=== PATIENT | male | born 1970 | race Caucasian/White ===

== ENCOUNTER 2016-11-12 21:19 | Emergency (ER) | payer SELFPAY ==
[2016-11-13] MEDS ORDERED: DIPH/PERTUSS(ACELL)/TETANUS VAC/PF 0.5 ML SYR (>=10YO) IM ONE (00:12)
[2016-11-13] MEDS ORDERED: DOXYCYCLINE HYCLATE 100 MG TABLET PO ONE (00:14)
--- NOTE | 2016-11-13 00:16 | ER Document Report ---
ED General - General Chief Complaint: Dog Bite Stated Complaint: DOG BITE Time Seen by Provider: 11/12/16 22:56 Notes: Patient is a 46-year-old male who presents after being bitten by his dog just prior to arrival. Patient sustained lacerations to the first second and third digit of the left hand. Notes a constant, severe, throbbing pain to the affected areas. Touching area worsens the pain. Nothing improves the pain. No history of similar injuries in the past. His dogs are up-to-date on immunizations. Patient is uncertain when his last tetanus immunization was administered. Denies any additional injuries. Denies any weakness or numbness. TRAVEL OUTSIDE OF THE [place] IN LAST 30 DAYS: No - Related Data Allergies/Adverse Reactions: aspirin [Aspirin] Allergy (Verified 09/16/15 12:31) Hives Penicillins Allergy (Verified 09/16/15 12:31) Hives Past Medical History - General Information source: Patient - Social History Smoking Status: Current Every Day Smoker Frequency of alcohol use: None Drug Abuse: None Lives with: Family Family History: Reviewed & Not Pertinent Patient has suicidal ideation: No Patient has homicidal ideation: No - Past Medical History Cardiac Medical History: Denies: Hx Coronary Artery Disease, Hx Hypertension Pulmonary Medical History: Reports: Hx Asthma Endocrine Medical History: Denies: Hx Diabetes Mellitus Type 1, Hx Diabetes Mellitus Type 2 Renal/ Medical History: Denies: Hx Peritoneal Dialysis Past Surgical History: Reports: Hx Appendectomy, Hx Orthopedic Surgery - right hand - Immunizations Hx Diphtheria, Pertussis, Tetanus Vaccination: Yes Review of Systems - Review of Systems Notes: Constitutional: Negative for fever. Eyes: Negative for visual changes. ENT: Negative for facial injury Cardiovascular: Negative for chest injury. Respiratory: Negative for shortness of breath. Gastrointestinal: Negative for abdominal injury. Genitourinary: Negative for genital injury Musculoskeletal: Negative for back injury. Skin: Positive for laceration/abrasions. Neurological: Negative for head injury. Physical Exam - Vital signs Vitals: Temp Pulse Resp BP Pulse Ox 97.8 F 67 18 124/75 97 11/12/16 21:47 11/12/16 21:47 11/12/16 21:47 11/12/16 21:47 11/12/16 21:47 Interpretation: Normal Notes: PHYSICAL EXAMINATION: GENERAL: Well-appearing, well-nourished and in no acute distress. HEAD: Atraumatic, normocephalic. EYES: Pupils equal round and reactive to light, extraocular movements intact, sclera anicteric, conjunctiva are normal. ENT: nares patent, oropharynx clear without exudates. Moist mucous membranes. NECK: Normal range of motion, supple without lymphadenopathy LUNGS: Breath sounds clear to auscultation bilaterally and equal. No wheezes rales or rhonchi. HEART: Regular rate and rhythm without murmurs ABDOMEN: Soft, nontender, normoactive bowel sounds. No guarding, no rebound. No masses appreciated. EXTREMITIES: AIN, PIN, IO intact. RMU sensory distribution intact. NEUROLOGICAL: No focal neurological deficits. Moves all extremities spontaneously and on command. PSYCH: Normal mood, normal affect. SKIN: Warm, Dry, normal turgor, and has a superficial laceration at the volar tip of the first, second and third digits Course - Re-evaluation Re-evalutation: 11/13/16 04:11 Patient presents with multiple dog bite to the left hand. Tetanus will be updated he has been started on doxycycline due to his allergy to penicillins. Wounds were irrigated extensively. At this time will discharge with return precautions and follow-up recommendations. Verbal discharge instructions given a the bedside and opportunity for questions given. Medication warnings reviewed. Patient is in agreement with this plan and has verbalized understanding of return precautions and the need for primary care follow-up in the next 24-72 hours. 11/13/16 04:21 - Vital Signs Vital signs: Temp Pulse Resp BP Pulse Ox 97.8 F 70 20 138/86 H 95 11/12/16 21:47 11/13/16 00:38 11/13/16 00:38 11/13/16 00:38 11/13/16 00:38 Discharge - Discharge Clinical Impression: Dog bite of left hand Qualifiers: Encounter type: initial encounter Qualified Code(s): S61.452A - Open bite of left hand, initial encounter Condition: Good Disposition: HOME, SELF-CARE Additional Instructions: Please monitor very closely for any signs of infection from your dog bite including spreading redness from the area, pus from the wound, or worsening pain. Clean the area twice daily with soap and water and then apply topical antibiotic ointment. Please take all the antibiotics that you were prescribed until they are gone. Follow-up with your primary care physician as needed. Prescriptions: Doxycycline Hyclate 100 mg PO BID #10 capsule Forms: Return to Work
[2016-11-13] MEDS ORDERED: IBUPROFEN 600 MG TABLET PO ONE (00:24)
[2016-11-13 00:59] VITALS: BP 138/86
== END 2016-11-13 00:40 | disposition home or self-care (01) ==
LOC: ER 21:19
DX: S61.452A Open bite of left hand, initial encounter (principal); W54.0XXA Bitten by dog, initial encounter; Z23 Encounter for immunization; Z88.0 Allergy status to penicillin; Z88.6 Allergy status to analgesic agent
CPT/HCPCS: 90471; 90715; 99283

== ENCOUNTER 2017-03-03 20:26 | Observation (INO) | payer SELFPAY ==
[2017-03-03] MEDS ORDERED: NITROGLYCERIN 2% OINTMENT 1 GM PACKET TP ONE (20:35)
--- NOTE | 2017-03-03 20:41 | ER Document Report ---
ED Cardiac - General Chief Complaint: Chest Pain > 30 Stated Complaint: CHEST PAIN Time Seen by Provider: 03/03/17 20:30 Mode of Arrival: Medic Information source: Patient, Emergency Med Personnel TRAVEL OUTSIDE OF THE [place] 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 Has not had similar symptoms in the past. Smokes 1/2 ppd. Plus diaphoresis - Related Data Allergies/Adverse Reactions: aspirin [Aspirin] Allergy (Verified 09/16/15 12:31) Hives Penicillins Allergy (Verified 09/16/15 12:31) Hives Past Medical History - General Information source: Patient, Emergency Med Personnel - Social History Smoking Status: Current Every Day Smoker Cigarette use (# per day): Yes Chew tobacco use (# tins/day): No Smoking Education Provided: Yes Family History: Reviewed & Not Pertinent - Past Medical History Cardiac Medical History: Denies: Hx Coronary Artery Disease, Hx Hypertension Pulmonary Medical History: Reports: Hx Asthma Endocrine Medical History: Denies: Hx Diabetes Mellitus Type 1, Hx Diabetes Mellitus Type 2 Renal/ Medical History: Denies: Hx Peritoneal Dialysis Past Surgical History: Reports: Hx Appendectomy, Hx Orthopedic Surgery - right hand - Immunizations Hx Diphtheria, Pertussis, Tetanus Vaccination: Yes Review of Systems - Review of Systems Constitutional: No symptoms reported Cardiovascular: See HPI, Chest pain Respiratory: No symptoms reported Gastrointestinal: No symptoms reported Musculoskeletal: No symptoms reported Neurological/Psychological: No symptoms reported -: Yes All other systems reviewed and negative Physical Exam - Vital signs Vitals: Resp Pulse Ox 18 96 03/03/17 20:39 03/03/17 20:39 - General General appearance: Appears well In distress: Mild - HEENT Pharynx: Normal Neck: Normal - Respiratory Respiratory status: No respiratory distress Chest status: Tender - There is min-mod TTP of the L anterior CW diffusely Breath sounds: Normal - Cardiovascular Rhythm: Regular Heart sounds: Normal auscultation - Abdominal Inspection: Normal Tenderness: Nontender Course - Re-evaluation Re-evalutation: 03/03/17 21:58 Pt. is feeling much better on re-evaluation. I have had a long talk with this pt. and have urged him to be admitted to the hospital as I am not sure as to the etiology of his CP. He states his young son is at home with the career technical supervisor and he needs to get home to him. He says he will return in the morning for reassessment. I have urged him to return prior to that if his CP returns. He will sign out OCTAVIOA michael. 03/03/17 22:20 Pt has agreed to be admitted. Will call hospitalist - Vital Signs Vital signs: Temp Pulse Resp BP Pulse Ox 20 150/79 H 98 03/03/17 21:01 03/03/17 21:01 03/03/17 22:16 - Laboratory Result Diagrams: 03/03/17 20:48 03/03/17 20:48 Laboratory results interpreted by me: 03/03/17 03/03/17 20:48 20:48 Lymphocytes % 48.5 H Sodium 136.5 L Direct Bilirubin 0.7 H Creatine Kinase 352 H - Diagnostic Test Radiology reviewed: Reports reviewed - nad - EKG Interpretation by Me EKG shows normal: Sinus rhythm Rate: Normal Rhythm: NSR - nsr without acute change - Consults letty Michael Consulted provider: will come to ER Discharge - Discharge Clinical Impression: Chest pain Qualifiers: Chest pain type: unspecified Qualified Code(s): R07.9 - Chest pain, unspecified Condition: Stable Disposition: AGAINST MEDICAL ADVICE Additional Instructions: rest, start aspirin every day, return if worse Referrals: FARAZ CHANDLER MD [ACTIVE STAFF] - Follow up as needed
[2017-03-03 21:01] LABS: ABSOLUTE BASOPHILS # (AUTO) 0.1 10^3/uL (0.0-0.2); ABSOLUTE EOSINOPHILS # (AUTO) 0.2 10^3/uL (0.0-0.6); ABSOLUTE MONOCYTES (AUTO) 0.5 10^3/uL (0.1-1.4); ABSOLUTE NEUT (AUTO) 3.4 10^3/uL (1.7-8.2); BASOPHILS % (AUTO) 0.8 % (0-2); EOSINOPHILS % (AUTO) 2.8 % (0-6); HEMATOCRIT 42.8 % (37.9-51.0); HEMOGLOBIN 15.2 g/dL (13.5-17.0); HGB HCT DIFFERENCE 2.8; LYMPHOCYTES % (AUTO) 48.5 % (13-45); MEAN CORPUSCULAR HEMOGLOBIN 33.4 pg (27.0-33.4); MEAN CORPUSCULAR HGB CONC 35.5 g/dL (32.0-36.0); MEAN CORPUSCULAR VOLUME 94 fl (80-97); MONOCYTES % (AUTO) 5.8 % (3-13); RED BLOOD COUNT 4.55 10^6/uL (4.35-5.55); RED CELL DISTRIBUTION WIDTH 13.5 % (11.5-14.0); SEGMENTED NEUTROPHILS % (AUTO) 42.1 % (42-78); WHITE BLOOD COUNT 8.2 10^3/uL (4.0-10.5)
[2017-03-03 21:25] LABS: ALANINE AMINOTRANSFERASE 29 U/L (21-72); ALBUMIN 4.2 g/dL (3.5-5.0); ALKALINE PHOSPHATASE 93 U/L (38-126); ANION GAP 8 (5-19); ASPARTATE AMINO TRANSFERASE 41 U/L (17-59); BILIRUBIN,DIRECT 0.7 mg/dL (0.0-0.4); BILIRUBIN,TOTAL 0.8 mg/dL (0.2-1.3); BLOOD UREA NITROGEN 19 mg/dL (7-20); CALCIUM 9.3 mg/dL (8.4-10.2); CARBON DIOXIDE 25 mmol/L (22-30); CHLORIDE 104 mmol/L (98-107); CREATINE KINASE 352 U/L (55-170); CREATININE RESULT 0.93 mg/dL (0.52-1.25); GLUCOSE 99 mg/dL (75-110); POTASSIUM 4.8 mmol/L (3.6-5.0); SODIUM 136.5 mmol/L (137-145); TOTAL PROTEIN 7.2 g/dL (6.3-8.2)
--- NOTE | 2017-03-03 21:36 | RADIOLOGY REPORT (SQ) ---
EXAM DESCRIPTION: CHEST PA/LAT COMPLETED DATE/TIME: 03/03/2017 8:58 pm REASON FOR STUDY: CP COMPARISON: None. EXAM PARAMETERS: NUMBER OF VIEWS: two views TECHNIQUE: Digital Frontal and Lateral radiographic views of the chest acquired. RADIATION DOSE: NA LIMITATIONS: none FINDINGS: LUNGS AND PLEURA: No opacities, masses or pneumothorax. No pleural effusion. MEDIASTINUM AND HILAR STRUCTURES: No masses or contour abnormalities. HEART AND VASCULAR STRUCTURES: Heart normal size. No evidence for failure. BONES: No acute findings. HARDWARE: None in the chest. OTHER: No other significant finding. IMPRESSION: NO SIGNIFICANT RADIOGRAPHIC FINDING IN THE CHEST. TECHNICAL DOCUMENTATION: JOB ID: [id number] [facility]- All Rights Reserved
[2017-03-03 21:37] LABS: CREATINE KINASE MB 2.73 ng/mL (<4.55)
[2017-03-03 21:38] LABS: TROPONIN I < 0.012 ng/mL
[2017-03-03] MEDS ORDERED: PROMETHAZINE HCL 25 MG TABLET PO PRN (22:22)
[2017-03-03] MEDS ORDERED: ACETAMINOPHEN 325 MG TABLET PO PRN (22:22)
[2017-03-03 22:38] LABS: APPEARANCE,URINE SLIGHTLY-CLOUDY; BILIRUBIN,URINE NEGATIVE (NEGATIVE); GLUCOSE, URINE NEGATIVE (NEGATIVE); KETONES,URINE NEGATIVE (NEGATIVE); LEUKOCYTE ESTERASE,URINE NEGATIVE (NEGATIVE); NITRITE,URINE NEGATIVE (NEGATIVE); PROTEIN,URINE NEGATIVE (NEGATIVE); URINE SPECIFIC GRAVITY 1.025; UROBILINOGEN,URINE NEGATIVE mg/dL (<2.0)
[2017-03-03 23:55] LABS: URINE BARBITURATES SCREEN NEGATIVE; URINE METHADONE SCREEN NEGATIVE; URINE OPIATES LOW NEGATIVE; URINE PHENCYCLIDINE SCREEN NEGATIVE
[2017-03-04 04:30] LABS: CHOLESTEROL 180.91 mg/dL (0-200); Direct HDL 35 mg/dL (>40); TRIGLYCERIDES 267 mg/dL (<150)
[2017-03-04 04:41] LABS: DIRECT LDL 119 mg/dL (<100)
[2017-03-04 04:47] LABS: VLDL CHOLESTEROL 53.4 mg/dL (10-31)
[2017-03-04] MEDS ORDERED: ALBUTEROL SULFATE HFA (90 MCG/PUFF) 8 GM MDI (1 MDI/ER DISP) IH PRN (07:50)
[2017-03-04] MEDS ORDERED: MAG HYDROX/AL HYDROX/SIMETH SUSP 30 ML UDCUP PO PRN (07:51)
[2017-03-04] MEDS ORDERED: NICOTINE 14 MG/24 HR PATCH.TD24 TD PRN (08:01)
[2017-03-04] MEDS ORDERED: ALBUTEROL SULFATE HFA (90 MCG/PUFF) 200 PUFF/8.5 GM MDI IH PRN (08:05)
--- NOTE | 2017-03-04 08:10 | PDOC H&P ---
History of Present Illness Admission Date/PCP: 03/03/17 22:34 No PCP Patient complains of: chest pain History of Present Illness: JENNIE PEREZ is a 46 year old male with medical history remarkable essentially only for asthma, which rarely bothers him. Presents to the emergency room for evaluation of above complaint. Patient has been discussed with emergency room physician who evaluated the patient. 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 While at work, he noted the onset of what he described as stabbing chest pain, originating lower anterior left costal margin. No prior such episodes. No radiation of the pain. Nausea and 2 episodes of vomiting, along with mild shortness of breath and mild diaphoresis. Patient actually attempted to walk from the [facility] to the hospital. En route, the pain became much more pronounced and patient stopped and called an ambulance, with EMS transporting him to the hospital. Was given 1 sublingual nitroglycerin en route which partially relieved his pain with complete relief after an inch of Nitropaste was applied. Pain has not recurred. Patient has an aspirin allergy. No underlying cardiac disease in either himself or his family. No problems with hypertension, previous AK or congestive heart failure atrial fibrillation or atrial flutter. No history of pulmonary embolus or DVT. No recent long trip with prolonged inactivity, or unusual lower extremity swelling or tenderness. No prior cardiac workup. Currently resting quietly, chest pain-free. Dictation via voice recognition software. Laboratory results are listed in [employer] and are reviewed. X-ray summary results are listed below, with full report(s) reviewed. . EKG reviewed. Social history/personal habits: from his . One son. Employment as noted above. Half pack of cigarettes per day. Denies alcohol or illicit drug use, but drug screen is positive for marijuana. Allergies/adverse reactions are listed in [employer] and are reviewed. Home medications consist only of as needed Pro Air inhaler. Rarely uses this. REVIEW OF SYSTEMS: Constitutional: No fever or chills. Eyes: No vision complaints. ENT: No swallowing problems or complaints. Denies hearing loss. Pulmonary: See history and present illness. Cardiovascular: See history and present illness. Gastrointestinal: See history and present illness. Skin: No current complaints, including rashes. Hematologic: Denies easy bruising. Neurologic: No current complaints, including numbness or tingling. Musculoskeletal: No current or chronic joint complaints, such as arthritis. Psychiatric: Denies anxiety or depression. Endocrine: No current complaints, including polyuria. Genitourinary: No current complaints, including dysuria. PHYSICAL EXAMINATION: 5 feet 6 inches tall. 86.2 kg. BMI 30.7 kg/m. Temperature 98.4. Pulse 60 and regular. Blood pressure 06/22/1956. Respirations are 14 and unlabored. 96 % saturation on room air. Well-nourished well-developed male initially asleep. Awakens easily. Pleasant alert and cooperative. No obvious distress other than perhaps mildly anxious. Skin is warm and dry. No grossly obvious evidence of rash in areas of skin examined. No subcutaneous nodules palpated. ENT: Hearing grossly normal to normal conversation. Tongue midline on protrusion pink and slightly tacky. Eyes: No scleral icterus. Pupils equal and reactive to light at 4 mm. [place] conjunctivae. Neck is supple and nontender to gentle active range of motion and palpation. Midline trachea. No palpable thyroid nodule mass enlargement or tenderness. Lymphatic: No palpable cervical or clavicular nodes. Neck and lymphatic exams limited by patient body habitus. Psychiatric: Reasonable insight into acute and chronic medical issues. Oriented to time location and why here. Lungs: Auscultation reveals clear and equal breath sounds bilaterally. No use of accessory respiratory muscles. Cardiovascular: Heart regular rate and rhythm, without gallop murmur or rub. No carotid or abdominal aortic bruits. No ankle or pedal edema. Palpable dorsalis pedis pulses. Abdomen:soft slightly distended nontender with positive bowel sounds. Unable to adequately evaluate abdomen for masses or organomegaly due to distention. Compression of his upper epigastrium slightly reproduces his previously noted chest discomfort; sternal compression easily reproduces this discomfort. Extremities: Feet are warm and dry. No calf tenderness to compression. No grossly obvious visual evidence of calf swelling. Gentle manipulation of lower extremities fails to reveal any obvious evidence of injury or instability to knees hips or ankles. Neurologic: Moves upper extremities grossly normally. Patellar reflexes absent. Absent Babinski. Light touch is intact at feet. Dorsiflexion and plantarflexion of feet 5 / 5 and symmetric. Past Medical History Cardiac Medical History: Denies: Atrial Fibrillation, Congestive Heart Failure, Coronary Artery Disease, DVT, Myocardial Infarction, Hyperlipidema, Hypertension, Pulmonary Embolism Pulmonary Medical History: Reports: Asthma Denies: Chronic Obstructive Pulmonary Disease (COPD), Sleep Apnea EENT Medical History: Denies: Eyes, Ears, Throat Neurological Medical History: Denies: Hemorrhagic CVA, Ischemic CVA, Seizures Endocrine Medical History: Denies: Diabetes Mellitus Type 1, Diabetes Mellitus Type 2, Hyperthyroidism, Hypothyroidism Renal/ Medical History: Reports: None GI Medical History: Denies: Cirrhosis, Gastroesophageal Reflux Disease, Hepatitis, Peptic Ulcer Disease Musculoskeltal Medical History: Denies: Arthritis Skin Medical History: Reports: None Psychiatric Medical History: Reports: Substance Abuse, Tobacco Dependency, Other - Marijuana use Denies: Alcohol Dependency, Depression, General Anxiety Disorder Infectious Medical History: Denies: Hepatitis B, Hepatitis C Past Surgical History Past Surgical History: Reports: Appendectomy, Orthopedic Surgery - right hand Social History Information Source: Patient, Emergency Med Personnel, [facility] Records Smoking Status: Current Every Day Smoker Frequency of Alcohol Use: None Hx Recreational Drug Use: Yes Drugs: Marijuana - Advance Directive Resuscitation Status: Full Code Surrogate healthcare decision maker:: Mother Family History Family History: Reviewed & Not Pertinent Parental Family History Reviewed: Yes - Mother alive; seizure disorder. Never knew his father well. Children Family History Reviewed: Yes - Son with bipolar disorder. Sibling(s) Family History Reviewed.: Yes - Uncertain health status. Medication/Allergy Home Medications: Atorvastatin Calcium [Lipitor 40 mg Tablet] 40 mg PO QHS #30 tablet 03/05/17 Ibuprofen [Motrin 600 mg Tablet] 600 mg PO MEALS tablet 03/05/17 Allergies/Adverse Reactions: aspirin [Aspirin] Allergy (Verified 09/16/15 12:31) Hives Penicillins Allergy (Verified 09/16/15 12:31) Hives Seafood Allergy (Uncoded 03/04/17 08:14) throat swelling Physical Exam Vital Signs: Temp Pulse Resp BP Pulse Ox 98.4 F 60 16 124/59 L 98 03/04/17 01:00 03/04/17 02:00 03/04/17 01:00 03/04/17 01:00 03/04/17 01:00 Intake & Output 03/03/17 03/04/17 03/05/17 00:59 00:59 00:59 Intake Total 390 Balance 390 Weight 86.183 kg Results Laboratory Results: 03/04/17 03:45 Triglycerides 267 H Cholesterol 180.91 LDL Cholesterol Direct 119 H VLDL Cholesterol 53.4 H HDL Cholesterol 35 L 03/04/17 03:45 Troponin I < 0.012 Impressions: Chest X-Ray 03/03/17 20:34 IMPRESSION: NO SIGNIFICANT RADIOGRAPHIC FINDING IN THE CHEST. Assessment & Plan - Diagnosis (1) Precordial chest pain Is this a current diagnosis for this admission?: Yes Plan: Suspect this is musculoskeletal in nature, given its precordial reproduction, but given patient's risk factor of tobacco use, along with response to nitroglycerin, Patient will be placed in observation bed under chest pain protocol. Patient understands to notify staff should chest pain recur. Serial troponin . Repeat EKG. lipid panel. I have strongly encouraged patient to be careful getting out of bed, to avoid a fall with injury. Knee high SCDs for DVT prophylaxis. Impression and plans were discussed with patient, who concurs . Time spent in evaluation and management of patient: 58 minutes. (2) Tobacco dependency Is this a current diagnosis for this admission?: Yes Plan: As needed nicotine patch. (3) DVT prophylaxis Is this a current diagnosis for this admission?: Yes (4) Asthma Qualifiers: Asthma severity: mild Asthma persistence: unspecified Asthma complication type: uncomplicated Qualified Code(s): J45.909 - Unspecified asthma, uncomplicated Is this a current diagnosis for this admission?: Yes Plan: As needed pro-air inhaler. - Time Time Spent: 50 to 70 Minutes Medications reviewed and adjusted accordingly: Yes Anticipated discharge: Home Within: within 24 hours
[2017-03-04] MEDS ORDERED: CLOPIDOGREL BISULFATE 75 MG TABLET PO SCH (10:00)
[2017-03-04] MEDS: DOCUSATE SODIUM 100 MG CAPSULE PO SCH ×2 (10:26→18:47)
--- NOTE | 2017-03-04 11:13 | EKG REPORT ---
SEVERITY:- ABNORMAL ECG - SINUS RHYTHM ST ELEVATION SUGGESTS PERICARDITIS : Confirmed by: Lucila Banks MD 04-Mar-2017 11:12:48
--- NOTE | 2017-03-04 11:13 | EKG REPORT ---
SEVERITY:- NORMAL ECG - SINUS RHYTHM : Confirmed by: Lucila Banks MD 04-Mar-2017 11:12:53
[2017-03-04] MEDS ORDERED: DEXTROSE 50%-WATER 25 GM/50 ML DISP.SYRIN IV PRN ×2 (15:34)
[2017-03-04] MEDS ORDERED: DEXTROSE 40% GEL 15 GM TUBE PO PRN ×2 (15:34)
[2017-03-04] MEDS ORDERED: GLUCAGON,HUMAN RECOMB 1 MG INJ SUBCUT PRN (15:34)
[2017-03-04] MEDS ORDERED: ATORVASTATIN CALCIUM 40 MG TABLET PO SCH (16:00)
--- NOTE | 2017-03-04 17:19 | PDOC PROGRESS REPORT ---
Subjective Progress Note for:: 03/04/17 Subjective:: Pt states that he is still having chest pain with touching his chest. Physical Exam Vital Signs: Temp Pulse Resp BP Pulse Ox 97.4 F 56 L 20 103/70 97 03/04/17 07:19 03/04/17 07:19 03/04/17 07:19 03/04/17 07:19 03/04/17 07:19 General appearance: PRESENT: no acute distress, well-developed, well-nourished Head exam: PRESENT: atraumatic, normocephalic Eye exam: PRESENT: conjunctiva pink, EOMI. ABSENT: scleral icterus Ear exam: PRESENT: normal external ear exam Mouth exam: PRESENT: moist, tongue midline Neck exam: ABSENT: carotid bruit, JVD, lymphadenopathy, thyromegaly Respiratory exam: PRESENT: clear to auscultation [place]. ABSENT: rales, rhonchi, wheezes Cardiovascular exam: PRESENT: RRR. ABSENT: diastolic murmur, rubs, systolic murmur Pulses: PRESENT: normal dorsalis pedis pul Vascular exam: PRESENT: normal capillary refill GI/Abdominal exam: PRESENT: normal bowel sounds, soft. ABSENT: distended, guarding, mass, organolmegaly, rebound, tenderness Rectal exam: PRESENT: deferred Extremities exam: PRESENT: full ROM. ABSENT: calf tenderness, clubbing, pedal edema Musculoskeletal exam: PRESENT: tenderness - +chest wall tenderness to palpation Neurological exam: PRESENT: alert, awake, oriented to person, oriented to place , oriented to time, oriented to situation, CN II-XII grossly intact. ABSENT: motor sensory deficit Psychiatric exam: PRESENT: appropriate affect, normal mood. ABSENT: homicidal ideation, suicidal ideation Skin exam: PRESENT: dry, intact, warm. ABSENT: cyanosis, rash Results Laboratory Results: 03/04/17 09:40 Troponin I < 0.012 Impressions: Chest X-Ray 03/03/17 20:34 IMPRESSION: NO SIGNIFICANT RADIOGRAPHIC FINDING IN THE CHEST. Assessment & Plan - Diagnosis (1) Chest pain Qualifiers: Chest pain type: unspecified Qualified Code(s): R07.9 - Chest pain, unspecified Is this a current diagnosis for this admission?: Yes Plan: Question whether patient has pericarditis versus costochondritis: Patient has order for 2D echo and stress test. Had patient leaning forward and take deep breath to see if he still experience chest pain and patient reported that he did. Patient possibly could have costochondritis. (2) Pericarditis Is this a current diagnosis for this admission?: Yes Plan: EKG suggestive of pericarditis. Will place patient on ibuprofen (3) Hyperlipidemia Is this a current diagnosis for this admission?: Yes Plan: We will place patient on statin (4) Asthma Qualifiers: Asthma severity: mild Asthma persistence: unspecified Asthma complication type: uncomplicated Qualified Code(s): J45.909 - Unspecified asthma, uncomplicated Is this a current diagnosis for this admission?: No Plan: Patient stable currently (5) Tobacco dependency Is this a current diagnosis for this admission?: Yes Plan: Encourage patient not to smoke - Time Time Spent with patient: 15-24 minutes
[2017-03-04] MEDS: IBUPROFEN 600 MG TABLET PO SCH (18:45)
--- NOTE | 2017-03-05 12:34 | DRAGON STRESS TEST REPORT ---
EXERCISE EKG TREADMILL CARDIOLITE STRESS TEST USING SPECT. DATE OF PROCEDURE: March 05, 2017 INDICATION : Chest pain RESTING EKG: Sinus rhythm, no baseline ST segment changes PROCEDURE REPORT: Baseline heart rate 54 beats per minute with blood pressure of 138/92. Patient had no significant complaints. Patient exercised on standard Jarvis protocol. Patient exercised for a total of 8 minutes and 33 seconds. Exercise was stopped because of fatigue and shortness of breath. No significant EKG changes were noted. Patient had no significant complaints during the procedure or postprocedure. Peak heart rate was 166 which is 94 % of predicted maximum. Peak blood pressure was noted to be 204/68. Double product noted to be adequate kcal. Met level achieved was 10.10. CONCLUSIONS: Normal EKG and hemodynamic response exercise stress test at adequate double product. NUCLEAR DATA: At rest the patient was given 13.88 millicuries of technetium 99 sestamibi injected intravenously. As per protocol rest gated SPECT images were obtained. Subsequently the stress dose of 42.5 millicuries of technetium 99 sestamibi was injected intravenously at peak exercise and patient continued to exercise for additional 1-2 minutes. As per protocol stress gated images were obtained. NUCLEAR INTERPRETATION: Both raw and processed data were used for interpretation. Visual, qualitative, computer-generated quantitative data was used. There was good myocardial uptake of technetium compound. Motion artifact and soft tissue attenuations were noted. Increased visceral uptake was noted. No definitive areas of transient perfusion defect noted. No definitive areas of fixed perfusion defect or scars noted. EKG gated imaging showed LV EF at 57 %, rest and stress gated EF similar visually. T. I D. ratio was 0.88. Lung heart ratio noted to be within normal limits 0.32. No significant extracardiac and abnormal radiotracer activities were noted. RV free wall uptake was noted to be WNL. IMPRESSION: Also refer to comments under nuclear interpretation. Also test results needs to be interpreted in the context of pretest probability. 1. There is no definitive scintigraphic evidence of exercise induced myocardial ischemia at adequate double product. 2. There is no definitive scintigraphic evidence of myocardial infarction/scar. 3. EKG gated imaging shows left ventricular ejection fraction of approximately 57 %. 4. Clinical correlation requested as occasionally single vessel disease and rarely balanced ischemia could be missed. 5. Average exercise tolerance. RECOMMENDATIONS: Aggressive risk factor modification, medical therapy. Clinical correlation with echocardiogram derived ejection fraction. Consider cardiology consultation and or follow-up if clinically indicated. MTDD
[2017-03-05] MEDS: IBUPROFEN 600 MG TABLET PO SCH (13:06)
[2017-03-05] MEDS: DOCUSATE SODIUM 100 MG CAPSULE PO SCH (13:08)
--- NOTE | 2017-03-05 14:44 | PDOC DISCHARGE SUMMARY ---
General - Admit/Disc Date/PCP Admission Date/Primary Care Provider: 03/04/17 07:51 Discharge Date: 03/05/17 - Discharge Diagnosis (1) Pericarditis Is this a current diagnosis for this admission?: Yes Summary: We will have patient use ibuprofen every 6 to every 8 hours for the next 7-10 days. (2) Chest pain Is this a current diagnosis for this admission?: Yes Summary: Atypical chest pain secondary to pericarditis: Patient has stress test demonstrated no evidence of ischemia patient's echo was within normal range. (3) Hyperlipidemia Is this a current diagnosis for this admission?: Yes Summary: We will place patient on statin. Patient will need a follow-up PCP for lab work in 4-6 weeks. (4) Asthma Is this a current diagnosis for this admission?: No Summary: Supportive care (5) Tobacco dependency Is this a current diagnosis for this admission?: Yes Summary: Encourage patient to discontinue tobacco use. - Additional Information Resuscitation Status: Full Code Discharge Diet: Cardiac Discharge Activity: Activity As Tolerated Home Medications: Atorvastatin Calcium [Lipitor 40 mg Tablet] 40 mg PO QHS #30 tablet 03/05/17 Ibuprofen [Motrin 600 mg Tablet] 600 mg PO MEALS tablet 03/05/17 History of Present Illness Patient complains of: Chest pain History of Present Illness: JENNIE PEREZ is a 46 year old male presented to hospital with complaint of chest pain. Patient was trying to walk to the hospital when he had to stop due to the severity of chest pain. Hospital Course Hospital Course: Patient is a 46-year-old gentleman that was admitted to our facility for chest pain. Patient's presentation seemed to be consistent with possible pericarditis. Patient's EKG also was suggestive of pericarditis. Patient did have a nuclear treadmill stress test done which demonstrated no evidence of ischemia. Patient's echo also was within normal range. Patient was placed on ibuprofen and chest pain improved. Patient was encouraged to discontinue tobacco abuse. Patient was found to have hyperlipidemia and was placed on statin. Patient will need to follow-up with PCP for lab work regarding statin in 4-6 weeks. Physical Exam Vital Signs: Temp Pulse Resp BP Pulse Ox 97.7 F 73 16 146/88 H 98 03/05/17 11:44 03/05/17 11:44 03/05/17 11:44 03/05/17 11:44 03/05/17 11:44 Intake & Output 03/04/17 03/05/17 03/06/17 06:59 06:59 06:59 Intake Total 1052 Output Total 480 Balance 572 General appearance: PRESENT: no acute distress, well-developed, well-nourished Head exam: PRESENT: atraumatic, normocephalic Eye exam: PRESENT: conjunctiva pink, EOMI. ABSENT: scleral icterus Ear exam: PRESENT: normal external ear exam Mouth exam: PRESENT: moist, tongue midline Neck exam: ABSENT: carotid bruit, JVD, lymphadenopathy, thyromegaly Respiratory exam: PRESENT: clear to auscultation tootie. ABSENT: rales, rhonchi, wheezes Cardiovascular exam: PRESENT: RRR. ABSENT: diastolic murmur, rubs, systolic murmur Pulses: PRESENT: normal dorsalis pedis pul Vascular exam: PRESENT: normal capillary refill GI/Abdominal exam: PRESENT: normal bowel sounds, soft. ABSENT: distended, guarding, mass, organolmegaly, rebound, tenderness Rectal exam: PRESENT: deferred Extremities exam: PRESENT: full ROM. ABSENT: calf tenderness, clubbing, pedal edema Neurological exam: PRESENT: alert, awake, oriented to person, oriented to place , oriented to time, oriented to situation, CN II-XII grossly intact. ABSENT: motor sensory deficit Psychiatric exam: PRESENT: appropriate affect, normal mood. ABSENT: homicidal ideation, suicidal ideation Skin exam: PRESENT: dry, intact, warm. ABSENT: cyanosis, rash Results Laboratory Results: 03/04/17 09:40 Troponin I < 0.012 Impressions: Chest X-Ray 03/03/17 20:34 IMPRESSION: NO SIGNIFICANT RADIOGRAPHIC FINDING IN THE CHEST. Plan Time Spent: Less than 30 Minutes
[2017-03-05 14:46] VITALS: BP 124/59
== END 2017-03-05 15:10 | disposition home or self-care (01) ==
LOC: ER 20:26 → EH 22:34 → UNDOADMOB 22:34 → EH 03-04 00:59 → 4N 03-04 00:59 → EH 03-04 07:51
PROVIDERS: ADMIT Family Medicine; ATTEND Family Medicine
DX: I31.9 Disease of pericardium, unspecified (principal); R07.89 Other chest pain; E78.5 Hyperlipidemia, unspecified; J45.909 Unspecified asthma, uncomplicated; F17.210 Nicotine dependence, cigarettes, uncomplicated; R78.89 Finding of other specified substances, not normally found in blood; Z79.899 Other long term (current) drug therapy; Z88.6 Allergy status to analgesic agent; Z90.49 Acquired absence of other specified parts of digestive tract
CPT/HCPCS: 93005 ×2; 99285; 36415 ×2; 82553; 82550; 85025; 80053; 81001; 84484 ×2; 80307; 80061; 93017; 71020; 78452; 93010 ×2; G0378 ×2; A9500; J3490; Q9969

== ENCOUNTER 2019-05-17 21:21 | Emergency (ER) | payer SELFPAY ==
[2019-05-18 00:27] LABS: ABSOLUTE BASOPHILS # (AUTO) 0.1 10^3/uL (0.0-0.2); ABSOLUTE EOSINOPHILS # (AUTO) 0.2 10^3/uL (0.0-0.6); ABSOLUTE LYMPHOCYTES (AUTO) 4.3 10^3/uL (0.5-4.7); ABSOLUTE NEUT (AUTO) 6.5 10^3/uL (1.7-8.2); BASOPHILS % (AUTO) 0.8 % (0-2); HEMATOCRIT 44.5 % (37.9-51.0); HEMOGLOBIN 15.6 g/dL (13.5-17.0); LYMPHOCYTES % (AUTO) 35.8 % (13-45); MEAN CORPUSCULAR HEMOGLOBIN 32.9 pg (27.0-33.4); MEAN CORPUSCULAR VOLUME 94 fl (80-97); MONOCYTES % (AUTO) 7.9 % (3-13); PLATELET COUNT 193 10^3/uL (150-450); RED BLOOD COUNT 4.75 10^6/uL (4.35-5.55); RED CELL DISTRIBUTION WIDTH 13.6 % (11.5-14.0); SEGMENTED NEUTROPHILS % (AUTO) 53.5 % (42-78); TOTAL CELLS COUNTED % (AUTO) 100 %; WHITE BLOOD COUNT 12.1 10^3/uL (4.0-10.5)
[2019-05-18 00:46] LABS: A TYPE INFLUENZA AG NEGATIVE (NEGATIVE); B INFLUENZA AG NEGATIVE (NEGATIVE)
[2019-05-18 00:49] LABS: ALBUMIN 4.4 g/dL (3.5-5.0); ALKALINE PHOSPHATASE 89 U/L (38-126); ANION GAP 8 (5-19); ASPARTATE AMINO TRANSFERASE 28 U/L (17-59); BILIRUBIN,DIRECT 0.1 mg/dL (0.0-0.4); BILIRUBIN,TOTAL 0.5 mg/dL (0.2-1.3); BLOOD UREA NITROGEN 20 mg/dL (7-20); CALCIUM 9.5 mg/dL (8.4-10.2); CARBON DIOXIDE 28 mmol/L (22-30); CHLORIDE 107 mmol/L (98-107); GLUCOSE 92 mg/dL (75-110); POTASSIUM 4.5 mmol/L (3.6-5.0); TOTAL PROTEIN 7.7 g/dL (6.3-8.2)
[2019-05-18 01:09] LABS: APPEARANCE,URINE SLIGHTLY-CLOUDY; BILIRUBIN,URINE NEGATIVE (NEGATIVE); COLOR,URINE YELLOW; GLUCOSE, URINE NEGATIVE (NEGATIVE); KETONES,URINE NEGATIVE (NEGATIVE); LEUKOCYTE ESTERASE,URINE SMALL (NEGATIVE); NITRITE,URINE NEGATIVE (NEGATIVE); PROTEIN,URINE 30 mg/dL (NEGATIVE); URINE SPECIFIC GRAVITY 1.033; UROBILINOGEN,URINE NEGATIVE mg/dL (<2.0)
[2019-05-18] MEDS ORDERED: NORMAL SALINE 1000 ML 1,000 ML IV ONE (01:43)
[2019-05-18] MEDS ORDERED: KETOROLAC TROMETHAMINE INJ/PF 30 MG/1 ML SDV IV ONE (02:06)
[2019-05-18] MEDS ORDERED: ONDANSETRON HCL INJ/PF 4 MG/2 ML SDV IV ONE (02:06)
--- NOTE | 2019-05-18 02:29 | ER Document Report ---
ED General - General Chief Complaint: Nausea/Vomiting/Diarrhea Stated Complaint: BODY HURTS/VOMITING/SORE THROAT Time Seen by Provider: 05/18/19 01:33 Primary Care Provider: EVA SEPULVEDA MD [ACTIVE STAFF] - Follow up in 3-5 days Notes: 48-year-old male presents with 4-day history of nausea/vomiting/diarrhea and generalized body aches. Patient denies high fevers of greater than 101. Patient denies any sick contacts. Patient also states associated abdominal pain and generalized weakness. Patient also states he has been having a productive cough with phlegm. Patient states he has been unable to keep down any fluids or food. Denies any chest pain, shortness of breath, dizziness. TRAVEL OUTSIDE OF THE [place] IN LAST 30 DAYS: No - Related Data Allergies/Adverse Reactions: aspirin [Aspirin] Allergy (Verified 09/16/15 12:31) Hives Penicillins Allergy (Verified 09/16/15 12:31) Hives Seafood Allergy (Uncoded 03/04/17 08:14) throat swelling Past Medical History - Social History Smoking Status: Current Every Day Smoker Family History: Reviewed & Not Pertinent Patient has suicidal ideation: No Patient has homicidal ideation: No - Past Medical History Cardiac Medical History: Denies: Hx Atrial Fibrillation, Hx Congestive Heart Failure, Hx Coronary Artery Disease, Hx DVT, Hx Heart Attack, Hx Hypercholesterolemia, Hx Hypertension, Hx Pulmonary Embolism Pulmonary Medical History: Reports: Hx Asthma Denies: Hx COPD, Hx Sleep Apnea Neurological Medical History: Denies: Hx Seizures Endocrine Medical History: Denies: Hx Diabetes Mellitus Type 1, Hx Diabetes Mellitus Type 2, Hx Hyperthyroidism, Hx Hypothyroidism Renal/ Medical History: Denies: Hx Peritoneal Dialysis GI Medical History: Denies: Hx Cirrhosis, Hx Gastroesophageal Reflux Disease, Hx Hepatitis Musculoskeletal Medical History: Denies Hx Arthritis Psychiatric Medical History: Denies: Hx Depression Infectious Medical History: Denies: Hx Hepatitis Past Surgical History: Reports: Hx Appendectomy, Hx Orthopedic Surgery - right hand - Immunizations Hx Diphtheria, Pertussis, Tetanus Vaccination: Yes Review of Systems - Review of Systems Notes: Constitutional: Negative for fever. HENT: Negative for sore throat. Eyes: Negative for visual changes. Cardiovascular: Negative for chest pain. Respiratory: Positive for cough. Negative for shortness of breath. Gastrointestinal: Positive for abdominal pain, vomiting and diarrhea. Genitourinary: Negative for dysuria. Musculoskeletal: Positive for generalized myalgias. Negative for back pain. Skin: Negative for rash. Neurological: Negative for headaches, weakness or numbness. 10 point ROS negative except as marked above and in HPI. Physical Exam - Vital signs Vitals: Temp Pulse Resp BP Pulse Ox 98.9 F 118 H 20 153/73 H 96 05/17/19 21:48 05/17/19 21:48 05/17/19 21:48 05/17/19 21:48 05/17/19 21:48 - Notes Notes: GENERAL: Well-appearing, well-nourished and in no acute distress. HEAD: Atraumatic, normocephalic. EYES: Extraocular movements intact, sclera anicteric, conjunctiva are normal. NECK: Normal range of motion, supple without lymphadenopathy or JVD. LUNGS: Breath sounds clear to auscultation bilaterally and equal. No wheezes rales or rhonchi. HEART: Regular rate and rhythm without murmurs, rubs or gallops. ABDOMEN: Soft, nontender. No guarding, no rebound. No masses appreciated. EXTREMITIES: Normal range of motion, no pitting or edema. No clubbing or cyanosis. NEUROLOGICAL: Cranial nerves II through XII grossly intact. Normal speech, normal gait. PSYCH: Normal mood, normal affect. SKIN: Warm, Dry, normal turgor, no rashes or lesions noted. Course - Re-evaluation Re-evalutation: 05/18/19 48-year-old male presents with nausea/vomiting/diarrhea and body aches. Patient does endorse abdominal pain and productive cough with phlegm. Lab work thus far is unremarkable including negative troponin. Patient has a mild leukocytosis of 12.1. Patient is afebrile. Abdomen is soft nontender. Lungs clear to auscultation bilaterally. Patient's flu test is negative. Chest x-ray was ordered. 05/18/19 04:38 chest x-ray shows no pneumonias. Patient's tachycardia has improved with 1 L of normal saline. Discussed all results with patient. Patient to be p.o. challenge and if p.o. tolerant patient will be discharged home. Patient given scripts for ibuprofen and Zofran. Strict return precautions given. Patient voices understanding and agrees with plan of care. 05/18/19 05:08 PO tolerant - Vital Signs Vital signs: Temp Pulse Resp BP Pulse Ox 98.0 F 70 16 119/74 96 05/18/19 04:29 05/18/19 04:29 05/18/19 04:29 05/18/19 04:29 05/18/19 04:29 - Laboratory Result Diagrams: 05/18/19 00:11 05/18/19 00:11 Laboratory results interpreted by me: 05/18/19 05/18/19 00:11 00:40 WBC 12.1 H Urine Protein 30 H Urine Blood SMALL H Ur Leukocyte Esterase SMALL H Discharge - Discharge Clinical Impression: Influenza-like illness Condition: Stable Disposition: HOME, SELF-CARE Instructions: Antinausea Medication ([facility]), Intravenous (IV) Fluids ([facility]) Additional Instructions: Please take medications as prescribed. Please drink plenty of fluids. Please follow-up with your primary care doctor or clinic listed in 3 to 5 days. Return to ER for any worsening symptoms, including vomiting not controlled with medication, abdominal pain, chest pain, coughing up blood, fever, shortness of breath, or any other symptoms that are concerning to you. Prescriptions: Ondansetron [Zofran Odt 4 mg Tablet] 4 mg PO Q4HP PRN #30 tab.rapdis PRN Reason: Ibuprofen [Motrin 800 mg Tablet] 800 mg PO Q8H PRN #30 tab PRN Reason: Forms: Return to Work Referrals: EVA SEPULVEDA MD [ACTIVE STAFF] - Follow up in 3-5 days
--- NOTE | 2019-05-18 03:39 | RADIOLOGY REPORT (SQ) ---
Chest 2 view on 05/18/2019 at 3:05 AM CLINICAL INDICATION: Cough, fever COMPARISON: 03/03/2017 FINDINGS: The lungs are clear. Cardiac, hilar and mediastinal contours are within normal limits. Pulmonary vascularity is within normal limits. No bony abnormality is noted. IMPRESSION: No active disease.
[2019-05-18 04:30] VITALS: BP 119/74
== END 2019-05-18 05:12 | disposition home or self-care (01) ==
LOC: ER 21:21
DX: J11.1 Influenza due to unidentified influenza virus with other respiratory manifestations (principal); R11.2 Nausea with vomiting, unspecified; R19.7 Diarrhea, unspecified; R10.9 Unspecified abdominal pain; M79.10 Myalgia, unspecified site; F17.200 Nicotine dependence, unspecified, uncomplicated; Z88.6 Allergy status to analgesic agent; Z88.0 Allergy status to penicillin
CPT/HCPCS: 99284; 96361; 96374; 96375; 36415; 83690; 85025; 80053; 81001; 87804; 71046; J1885; J2405; J7030